=== PATIENT | male | born 1960 | race Caucasian/White ===

== ENCOUNTER → 2023-10-15 | Outpatient (CLI) | payer MEDICAID, SELFPAY ==
[2023-10-15 10:49] LABS: Absolute Lymphocyte Count 2.17 X10^3/uL (0.83-4.51); Absolute Neutrophil Count 4.2 X10^3/uL (2.0-7.7); Basophil# 0.13 X10^3/uL; Basophil% 1.7 % (0-1); Eosinophils% 1.3 % (0-5); Lymphocyte # 2.17 X10^3/ul (0.83-4.51); Lymphocyte % 28.2 % (19-41); Mean Corp Hgb Conc 33.3 g/dL (32-36); Mean Corpuscular Hgb 32.1 pg (27.0-32.0); Mean Corpuscular Volume 96.5 fL (80-94); Mean Platelet Vol. 9.2 fl (6.2-12.0); Monocyte# 1.03 X10^3/uL; Monocyte% 13.4 % (0-10); NRBC Flagged by Analyzer 0 % (0-5); Neutrophil # 4.24 X10^3/uL (2.7-7.7); Neutrophil % 55.1 % (47-70); Platelet Count 221 K/mm3 (150-450); RBC Distribution Width CV 14.6 % (11.6-14.6); Red Blood Count 6.29 M/mm3 (4.6-6.2); White Blood Count 7.7 K/mm3 (4.4-11.0)
[2023-10-15 10:51] LABS: Hematocrit 60.7 % (40-54)
[2023-10-15 10:59] LABS: Differential Indicated SCAN CRITERIA MET; Hemoglobin 20.2 g/dL (13.0-16.5)
[2023-10-15 11:02] LABS: ALB/GLOB Ratio 0.9 RATIO (0.9-2.4); AST(SGOT) 18 U/L (15-37); Alanine Aminotransfer ALT/SGPT 23 U/L (16-61); Albumin, Serum 3.8 g/dL (3.2-5.0); Alkaline Phosphatase 88 U/L (45-117); Anion Gap 7 (5-15); BUN 8 mg/dL (7-18); BUN/Creat Ratio 8.2 RATIO (10-20); Calcium,Total 9.2 mg/dL (8.5-10.1); Chloride 103 mmol/L (98-107); Creatinine, Serum 0.98 mg/dL (0.70-1.30); EST Glomerular Filtration Rate 83 mL/min (>60); Est Glom Filt Rate - Afr Amer 100 mL/min (>60); Globulin 4.2 g/dL (2.2-4.2); Glucose 105 mg/dL (74-106); LDH 184 U/L (87-241); Sodium Level 135 mmol/L (136-145)
[2023-10-15 11:19] LABS: Differential Comment SCANNED
[2023-10-15 18:44] LABS: Xtra Tube EP Lab EXTRA TUBE
[2023-10-16 13:09] LABS: Pathologist Review Reviewed
[2023-10-16 15:08] LABS: Erythropoietin 17.4 mIU/mL (2.6-18.5)
== END | disposition home or self-care (01) ==
LOC: LAB 10:31
PROVIDERS: Visit Provider Internal Medicine Hematology & Oncology
DX: D75.1 Secondary polycythemia (principal)
CPT/HCPCS: 36415; 80053; 82668; 83615; 85025; 85045

== ENCOUNTER 2025-02-21 06:36 | Emergency (ER) | payer MEDICAID, SELFPAY ==
[2025-02-21 06:38] VITALS: BP 149/75; PULSE 72; RESP 18; TEMP 36.9; O2SAT 99; BMI 30.9
--- NOTE | 2025-02-21 06:49 | ED.RN ---
pt refusing filling out FROI or making his injury workman comp,states he had problem with this shoulder prior to the fall.
--- NOTE | 2025-02-21 07:32 | EX.ED.UPPERE ---
HPI History of Present Illness Chief Complaint: Upper Extremity Injury Informant: patient Narrative Narrative: Patient states he has chronic arthritis of both shoulders worse on the left, he is right-hand dominant. He had a work related injury yesterday to his left shoulder. 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 He went to grab a 40 pound bag, he was holding it with both hands, his foot got stuck in a pallet causing him to temporarily lose his balance, and in catching himself without falling, he Lego the bag with his right hand, and the 40 pound bag then suddenly jerked his left upper extremity causing pain in his left shoulder which has been persistent and significant. No numbness or tingling or weakness. No other injury. [facility] Medical History Bilateral shoulder pain Lung nodules Secondary polycythemia History of gallstones Smoker Family history of diabetes mellitus Alcohol use Hypertriglyceridemia Claudication of calf muscles COPD (chronic obstructive pulmonary disease) Hypertension Home Medications ?Medication ?Instructions ?Recorded ?Last Taken ?Type montelukast 10 mg tablet 10 mg PO DAILY 10/09/23 Unknown History albuterol sulfate 90 mcg/actuation 2 puff inhalation Q4 PRN wheezing 02/02/25 Unknown History aerosol inhaler amlodipine 5 mg tablet 5 mg PO QDAY 02/02/25 Unknown History atorvastatin 10 mg tablet 10 mg PO QDAY 02/02/25 Unknown History carvedilol 6.25 mg tablet 6.25 mg PO BID 02/02/25 Unknown History clopidogrel 75 mg tablet 75 mg PO QDAY 02/02/25 Unknown History fluticasone 250 mcg-salmeterol 50 1 inh inhalation BID 02/02/25 Unknown History mcg/dose blistr powdr for inhalation (Advair Diskus) lisinopril 40 mg tablet 40 mg PO QDAY 02/02/25 Unknown History omega-3 300 mg-dha 120 mg-epa 180 1 cap PO QDAY 02/02/25 Unknown History mg-fish oil 1,000 mg capsule meloxicam 15 mg tablet 15 mg PO DAILY PRN pain #10 tabs 02/21/25 Unknown Rx Allergy/AdvReac Type Severity Reaction Status Date / Time naproxen (From Aleve) Allergy Unknown Other Verified 02/21/25 06:37 Family History Mother Diabetes Anemia Arthritis Father Cancer lung Daughter Diabetes Surgical History History of cholecystectomy Social History (Updated 02/02/25 @ 14:44 by Marbella Garcia) Smoking Status: Current every day smoker tobacco type: cigarettes Tobacco: How many years used: 45 alcohol intake: current alcohol intake frequency: a few times a week Alcohol type: beer substance use type: marijuana caffeine: Yes Type: carbonated beverages Number of servings: 2 ROS ROS ED Constitutional Constitutional ED: Denies chills or fever(s) Musculoskeletal Musculoskeletal: Reports extremity pain; Denies neck pain Integumentary Denies Abrasions, rash or wounds Neurologic Neurologic: Denies paresthesias or weakness EXAM Physical Exam Const Vital Signs: 02/21/25 06:38 Temperature 98.4 F Temperature Source Oral Pulse Rate 72 Respiratory Rate 18 Blood Pressure 149/75 H Blood Pressure Mean 99 Pulse Ox 99 Oxygen Delivery Method Room Air Positive well nourished and well developed General Appearance ED: well developed and NAD Neck full ROM and supple Back/Spine normal ROM and normal to inspection Extremity Extremity Narrative: At rest, no bony left shoulder tenderness or acromioclavicular joint tenderness/swelling. He has a positive speeds sign. Positive Yergason. Abnormal drop sign, he does not have significant pain with internal rotation but he does have significant discomfort with attempting external rotation against resistance. There is no deformity. Good range of motion of the elbow and wrist. All compartments of the left upper extremity are soft and nondistended. Good range of motion throughout the right upper extremity and the legs. Neuro oriented x3, no focal motor deficits and no sensory deficits noted Sensorium / Orientation: alert Psych mental status grossly normal and thought process normal Skin no wounds Rashes: no rashes MDM MDM MDM Narrative Medical decision making narrative: Three-view x-ray series of the left shoulder on my interpretation shows no acute fracture or dislocation. Radiology in agreement. In the meantime patient was given some ibuprofen and [place] which helped a little bit with the pain. He is in no distress. Could be an internal derangement such as a rotator cuff tear, bursitis, biceps tendon injury, this is not an exclusive list. For now given him lifting restrictions and work restrictions, no climbing ladders or working on machinery, until he can follow-up with [facility]. He want something for pain, so I am prescribing him meloxicam, I do not think he needs narcotics for this, but I am putting him on it for a limited period of time because he is also on clopidogrel. Discharge Plan Triage Chief Complaint: Upper Extremity Injury ED Provider: Tariq Simmons Dx/Rx/DC Orders Clinical Impression: Injury of left shoulder Instructions: ED Shoulder Impingement Syndrome Prescriptions: New meloxicam 15 mg tablet 15 mg PO DAILY PRN (Reason: pain) Qty: 10 0RF No Action montelukast 10 mg tablet 10 mg PO DAILY albuterol sulfate 90 mcg/actuation HFA aerosol inhaler 2 puff inhalation Q4 PRN (Reason: wheezing) amlodipine 5 mg tablet 5 mg PO QDAY atorvastatin 10 mg tablet 10 mg PO QDAY carvedilol 6.25 mg tablet 6.25 mg PO BID clopidogrel 75 mg tablet 75 mg PO QDAY fluticasone propion-salmeterol [Advair Diskus] 250-50 mcg/dose blister with device 1 inh inhalation BID lisinopril 40 mg tablet 40 mg PO QDAY omega 9-xol-lep-fish oil 300 mg (120 mg- 180mg)-1,000 mg capsule 1 cap PO QDAY Stand Alone Forms: Work Status Form Primary Care Provider: Kennedi Hilliard NP Referrals: [facility]] - As soon as possible Print Language: Bel[place]ian Disposition Disposition: Home, Self Care
--- NOTE | 2025-02-21 07:55 | RAD_ITS ---
PROCEDURE: SHOULDER MIN 2 VIEWS 02/21/2025 REASON FOR EXAM: PAIN/INJURY TECHNIQUE: SHOULDER MIN 2 VIEWS Laterality: Left COMPARISON: January 25, 2024 FINDINGS: Bones: No fracture Joints: Normal alignment. Mild degenerative changes. Soft tissues: Soft tissues are unremarkable. RAD/Shoulder min 2 Views IMPRESSION: No acute abnormality Reading Location: [id number]
[2025-02-21] MEDS: HYDROcodone Bitartrate/Apap 5/325 Tablet PO (08:05)
[2025-02-21 09:05] VITALS: BP 143/86; PULSE 79; RESP 17; TEMP 36.7; O2SAT 100
== END 2025-02-21 09:05 | disposition home or self-care (01) ==
PROVIDERS: Emergency Provider Emergency Medicine; PCP Registered Nurse; Visit Provider Emergency Medicine
DX: S49.92XA Unspecified injury of left shoulder and upper arm, initial encounter (principal); J44.9 Chronic obstructive pulmonary disease, unspecified; X58.XXXA Exposure to other specified factors, initial encounter; Y99.0 Civilian activity done for income or pay; F17.210 Nicotine dependence, cigarettes, uncomplicated; I10 Essential (primary) hypertension; Z79.51 Long term (current) use of inhaled steroids; Z79.899 Other long term (current) drug therapy
CPT/HCPCS: 73030; 99282

== ENCOUNTER → 2025-06-06 | Outpatient (CLI) | payer MEDICAID, SELFPAY ==
--- NOTE | 2025-06-06 13:05 | MRI_ITS ---
PROCEDURE: UPPER EXT JOINT ONLY(ROUTINE) 06/06/2025 REASON FOR EXAM: ASSESS ROTATOR CUFF TENDONS. Pain and decreased range of motion. Injured 10 months ago. TECHNIQUE: Procedure Code: [id number] Modality: MR Procedure: MRI of the left shoulder without contrast. Multiplanar and multisequence images were obtained without IV contrast administration. COMPARISON: Prior comparison: Left shoulder series 02/21/2025. FINDINGS: Moderately severe left acromioclavicular joint degenerative changes are noted. Severe atrophy of the supraspinatus muscle is seen, with nearly is bed atrophy of the infraspinatus muscle also noted. Complete disruption of the supraspinatus tendon with severe retraction noted. The infraspinatus tendon demonstrates a large tear, with only a minority of the tendon possibly inserting on the greater tuberosity. A partial tear of the long head of the biceps tendon is seen, extending to the musculotendinous junction. Superior subluxation of the left humeral head is noted. The left glenohumeral joint demonstrates moderate degenerative changes, with associated partial articular cartilage thinning. No significant joint effusion is seen. MRI/Upper Ext Joint Only(Routine) IMPRESSION: 1. Moderately severe left acromioclavicular joint degenerative changes. 2. Moderate left glenohumeral joint degenerative changes. 3. Chronic appearing disruption of the supraspinatus tendon. 4. Very large tear of the infraspinatus tendon, with probable minority insertio n of the greater tuberosity. 5. Partial tear of the long head of the biceps tendon, extending to the musculo tendinous junction. Reading Location: [id number]
--- NOTE | 2025-06-06 13:20 | RAD_ITS ---
PROCEDURE: ORBITS FOR FOREIGN BODY 06/06/2025 REASON FOR EXAM: CLEARANCE FOR MRI EXAM TODAY TECHNIQUE: Procedure Code: [id number]. Modality: DX Procedure: ORBITS FOR FOREIGN BODY COMPARISON: None FINDINGS: Skull and orbits are normal. Sinuses are clear. No radiopaque or metallic foreign body noted in the orbits. RAD/Orbits for Foreign Body IMPRESSION: No radiopaque foreign body in the orbits. Reading Location: [id number]
== END | disposition home or self-care (01) ==
LOC: MRI 12:47
PROVIDERS: PCP Registered Nurse; Referring Provider Orthopaedic Surgery Sports Medicine; Visit Provider Orthopaedic Surgery Sports Medicine
DX: M25.511 Pain in right shoulder (principal); M25.512 Pain in left shoulder
CPT/HCPCS: 70030; 73221